=== PATIENT | female | born 1990 | race Caucasian/White ===

== ENCOUNTER 2016-07-14 21:27 | Emergency (ER) | payer OTHER ==
[2016-07-14] MEDS ORDERED: SPRINTEC 28 DA1 EACH PO (21:47)
== END 2016-07-14 22:34 ==
LOC: EDMED 21:27
DX: S83.92XA Sprain of unspecified site of left knee, initial encounter (principal); Z87.442 Personal history of urinary calculi; X50.1XXA Overexertion from prolonged static or awkward postures, initial encounter; Y93.44 Activity, trampolining; Y99.8 Other external cause status